=== PATIENT | female | born 1985 | race Caucasian/White ===

== ENCOUNTER 2022-12-02 09:13 | Outpatient (OUT) | payer MEDICARE, SELFPAY ==
[2022-12-02 09:50] LABS: Basophils Percent Auto 0.5 % (0.2-2.0); Eosinophils Absolute Auto 0.1 10^3/uL (0.0-0.7); Eosinophils Percent Auto 1.1 % (0.9-7.0); Hematocrit 30.8 % (36.0-48.0); Immature Granulocytes Abs Auto 0.13 10^3/uL (0.00-0.03); Immature Granulocytes Pct Auto 2.3 % (0.0-0.5); Lymphocytes Absolute Auto 1.7 10^3/uL (1.2-3.8); Lymphocytes Percent Auto 29.9 % (20.5-60.0); Mean Corpuscular HGB Conc 32.5 g/dL (29.9-35.2); Mean Corpuscular Hemoglobin 26.3 pg (26.7-34.0); Mean Corpuscular Volume 81.1 fL (81.0-99.0); Mean Platelet Volume 8.6 fL (9.5-13.5); Monocytes Absolute Auto 0.4 10^3/uL (0.3-0.8); Monocytes Percent Auto 6.2 % (1.7-12.0); Neutrophils Absolute Auto 3.4 10^3/uL (1.4-6.5); Platelet Count 235 10^3/uL (150-450); Red Cell Distribution Width 16.2 % (11.0-15.0); White Blood Count 5.6 10^3/uL (4.0-11.0)
[2022-12-02 10:39] LABS: Estimated Average Glucose 180 mg/dL; Glycohemoglobin A1C 7.9 % (4.5-6.2)
[2022-12-02 12:18] LABS: Alanine Aminotransferase 38 U/L (14-59); Albumin Globulin Ratio 0.8; Albumin Level 3.3 g/dL (3.4-5.0); Alkaline Phosphatase 107 U/L (46-116); Anion Gap 12.1; Aspartate Amino Transferase 22 U/L (15-37); BUN Creatinine Ratio 11.6; Bilirubin Total 0.5 mg/dL (0.2-1.0); Chloride 102 mmol/L (98-107); Chol HDL Ratio 9.4; Cholesterol 169 mg/dL (<=200); Estimated GFR (African America >60 (>=60); Estimated GFR (Non-African Ame >60 (>=60); Globulin 4.3 g/dL; Glucose 247 mg/dL (74-106); HDL Cholesterol 18 mg/dL (40-60); Potassium 3.1 mmol/L (3.5-5.1); Sodium 137 mmol/L (136-145); Total Protein 7.6 g/dL (6.4-8.2); Triglycerides 348 mg/dL (<=150); VLDL CHOLESTEROL 69.6 mg/dL
== END 2022-12-02 09:14 | disposition home or self-care (01) ==
PROVIDERS: PCP Nurse Practitioner; Visit Provider Nurse Practitioner
DX: D50.9 Iron deficiency anemia, unspecified (principal); E11.9 Type 2 diabetes mellitus without complications
CPT/HCPCS: 36415; 80053; 80061; 82728; 82746; 83036; 83540; 85025

== ENCOUNTER 2023-03-31 15:28 | Outpatient (REF) | payer MEDICARE, SELFPAY ==
[2023-03-31 16:02] LABS: SARS-CoV-2 Ag NEGATIVE (NEGATIVE)
--- OUTSIDE RECORDS SUMMARY | 2023-04-01 09:59 | XMS_ITS | CCD ---
Author Name Unknown Address [address] [place] [address] Organization [facility] Care Team Providers Care Dbas Name Role Phone EM .REJI Attending Unavailable REJI MORALES Consulting Unavailable REJI MORALES Admitting Unavailable BISHOP WALLACE Primary Care Unavailable Allergies Allergy Classification Reported Allergen(s) Allergy Type Date of Onset Reaction(s) Facility (1 source) [facility] Allergy 07-15-2022 [facility] Repository Problems Problem Classification Problem Date Documented Da te Episodic/Chronic Abdominal pain (3 sources) Upper abdominal pain, unspecified; Translations: [UPPER ABDOMINAL PAIN, UNSPECIFIED] Onset: 07-15-2022 Episodic Deficiency and other anemia (1 source) Iron deficiency anemia, unspecified; Translations: [IRON DEFICIENCY ANEMIA UNSPECIFIED] Onset: 07-17-2022 Episodic Gastritis and duodenitis (1 source) Gastritis, unspecified, without bleeding; Translations: [GASTRITIS UNS WITHOUT BLEEDING] Onset: 07-17-2022 Episodic Other gastrointestinal disorders (1 source) Other fecal abnormalities; Translations: [OTHER FECAL ABNORMALITIES] Onset: 07-17-2022 Episodic Results Test Name Value Interpretation Reference Range Facility CBC AUTO DIFFon 07-15-2022 BASO # 0.0 103/ul Normal 0.0-0.1 [facility] Comment on above: Performed By: #### C BC #### [facility] [address] [address] [address] Soy Singh Basophils/100 WBC (Bld) 0.5 % Normal 0.2-2.0 [facility] Comment on above: Performed By: #### C BC #### [facility] [address] [place], [place] [address] Dr. Soy Singh EO # 0.1 103/ul Normal 0.0-0.7 [facility] Comment on above: Performed By: #### C BC #### [facility] [address] [place] [address] Dr. Soy Singh Eosinophils/100 WBC (Bld) 1.7 % Normal 0.9-7.0 [facility] Comment on above: Performed By: #### C BC #### [facility] [address] [place] [address] Dr. Soy Singh Erythrocyte distribution width (RBC) [Ratio] 19.4 % Critically high 11.0-15.0 [facility] Comment on above: Performed By: #### C BC #### [facility] [address] [place] [address] Dr. Soy Singh Hematocrit (Bld) [Volume fraction] 29.4 % Critically low 36.0-48.0 [facility] Comment on above: Performed By: #### C BC #### [facility] [address] [place] [address] Dr. Soy Singh Hemoglobin (Bld) [Mass/Vol] 8.6 g/dL Critically low 12.0-16.0 [facility] Comment on above: Performed By: #### C BC #### [facility] [address] [place] [address] Dr. Soy Singh IG # 0.02 10e3/ul Normal 0.00-0.03 [facility] Comment on above: Performed By: #### C BC #### [facility] [address] [place] [address] Dr. Soy Singh IG % 0.3 % Normal 0.0-0.5 [facility] Comment on above: Performed By: #### C BC #### [facility] [address] [place] [address] Dr. Soy Singh LYMPH # 1.6 103/ul Normal 1.2-3.8 [facility] Comment on above: Performed By: #### C BC #### [facility] [address] [place] [address] Dr. Soy Singh Lymphocytes/100 WBC (Bld) 23.8 % Normal 20.5-60.0 [facility] Comment on above: Performed By: #### C BC #### [facility] [address] [place] [address] Dr. Soy Singh MANUAL DIFF REQ NO Normal [facility] Comment on above: Performed By: #### C BC #### [facility] [address] [place] [address] Dr. Soy Singh MCH (RBC) [Entitic mass] 20.5 pg Critically low 26.7-34.0 [facility] Comment on above: Performed By: #### C BC #### [facility] [address] [place] [address] Dr. Soy Singh MCHC (RBC) [Mass/Vol] 29.3 g/dL Critically low 29.9-35.2 [facility] Comment on above: Performed By: #### C BC #### [facility] [address] [place] [address] Dr. Soy Singh MCV (RBC) [Entitic vol] 70.0 fL Critically low 81.0-99.0 [facility] Comment on above: Performed By: #### C BC #### [facility] [address] [place] [address] Dr. Soy Singh MONO # 0.3 103/ul Normal 0.3-0.8 [facility] Comment on above: Performed By: #### C BC #### [facility] [address] [place] [address] Dr. Soy Singh Monocytes/100 WBC (Bld) 4.3 % Normal 1.7-12.0 [facility] Comment on above: Performed By: #### C BC #### [facility] [address] [place] [address] Dr. Soy Singh NEUT # 4.5 103/ul Normal 1.4-6.5 [facility] Comment on above: Performed By: #### C BC #### [facility] [address] [place] [address] Dr. Soy Singh Neutrophils/100 WBC (Bld) 69.4 % Normal 43.0-75.0 [facility] Comment on above: Performed By: #### C BC #### [facility] [address] [address] [address] Soy Singh Platelet mean volume (Bld) [Entitic vol] 9.0 fL Critically low 9.5-13.5 [facility] Comment on above: Performed By: #### C BC #### [facility] [address] [place] [address] Dr. Soy Singh PLT 249 103/ul Normal 150-450 [facility] Comment on above: Performed By: #### C BC #### [facility] [address] [place] [address] Dr. Soy Singh RBC 4.20 106/ul Normal 4.20-5.40 [facility] Comment on above: Performed By: #### C BC #### [facility] [address] [place] [address] Dr. Soy Singh WBC 6.5 103/ul Normal 4.0-11.0 [facility] Comment on above: Performed By: #### C BC #### [facility] [address] [place] [address] Dr. Soy Singh IRON AND TIBCon 07-15-2022 % SATURATION 5.6 % Normal [facility] Comment on above: Performed By: #### F ETIBC #### [facility] [address] [place] [address] Dr. Soy Singh Iron [Mass/Vol] 23.0 ug/dL Critically low 50.0-170.0 [facility] Comment on above: Performed By: #### F ETIBC #### [facility] [address] [place] [address] Dr. Soy Singh TIBC DIRECT 410.0 ug/dL Normal 250.0-450.0 [facility] Comment on above: Performed By: #### F ETIBC #### [facility] [address] [place] [address] Dr. Soy Singh OCC BLD IMMUNOASSAYon 2022 OCCULT BLOOD Negative Normal NEGATIVE [facility] Comment on above: Performed By: #### O DARRELL #### [facility] [address] [address] [address] Soy Singh PREG HCG QUALon 07-15-2022 , QUAL Negative Normal NEGATIVE [facility] Comment on above: Performed By: #### P REG #### [facility] [address] [address] [address] Soy Singh PROF 14(COMP METB)on 023 Albumin [Mass/Vol] 3.7 g/dL Normal 3.4-5.0 [facility] Comment on above: Performed By: #### C MP #### [facility] [address] [place] [address] Dr. Soy Singh Albumin/Globulin [Mass ratio] 0.9 {ratio} Normal [facility] Comment on above: Performed By: #### C MP #### [facility] [address] [place] [address] Dr. Soy Singh ALP [Catalytic activity/Vol] 117 U/L Critically high 46-116 [facility] Comment on above: Performed By: #### C MP #### [facility] [address] [place] [address] Dr. Soy Singh ALT [Catalytic activity/Vol] 32 U/L Normal 14-59 [facility] Comment on above: Performed By: #### C MP #### [facility] [address] [place] [address] Dr. Soy Singh Anion gap [Moles/Vol] 12.4 mmol/L Normal [facility] Comment on above: Performed By: #### C MP #### [facility] [address] [place] [address] Dr. Soy Singh AST [Catalytic activity/Vol] 22 U/L Normal 15-37 [facility] Comment on above: Performed By: #### C MP #### [facility] [address] [place] [address] Dr. Soy Singh Bilirubin [Mass/Vol] 0.3 mg/dL Normal 0.2-1.0 [facility] Comment on above: Performed By: #### C MP #### [facility] [address] [address] [address] Soy Singh Calcium [Mass/Vol] 8.7 mg/dL Normal 8.5-10.1 [facility] Comment on above: Performed By: #### C MP #### [facility] [address] [address] [address] Soy Singh Chloride [Moles/Vol] 102 mmol/L Normal 98-107 [facility] Comment on above: Performed By: #### C MP #### [facility] [address] [address] [address] Soy Singh CO2 [Moles/Vol] 24.5 mmol/L Normal 21.0-32.0 [facility] Comment on above: Performed By: #### C MP #### [facility] [address] [place] [address] Dr. Soy Singh Creatinine [Mass/Vol] 0.88 mg/dL Normal 0.55-1.02 [facility] Comment on above: Performed By: #### C MP #### [facility] [address] [place] [address] Dr. Soy Singh EGFR-AF ARMENIAN >60 Normal >=60 [facility] Comment on above: Performed By: #### C MP #### [facility] [address] [place] [address] Dr. Soy Singh EGFR-NON AF ARMENIAN >60 Normal >=60 [facility] Comment on above: Performed By: #### C MP #### [facility] [address] [address] [address] Soy Singh Globulin (S) [Mass/Vol] 4.0 g/dL Normal [facility] Comment on above: Performed By: #### C MP #### [facility] [address] [place] [address] Dr. Soy Singh Glucose [Mass/Vol] 137 mg/dL Critically high 74-106 [facility] Comment on above: Performed By: #### C MP #### [facility] [address] [address] [address] Soy Singh Potassium [Moles/Vol] 3.9 mmol/L Normal 3.5-5.1 [facility] Comment on above: Performed By: #### C MP #### [facility] [address] [address] [address] Soy Singh Protein [Mass/Vol] 7.7 g/dL Normal 6.4-8.2 [facility] Comment on above: Performed By: #### C MP #### [facility] [address] [address] [address] Soy Singh Sodium [Moles/Vol] 135 mmol/L Critically low 136-145 [facility] Comment on above: Performed By: #### C MP #### [facility] [address] [address] [address] Soy Singh Urea nitrogen [Mass/Vol] 7.0 mg/dL Normal 7.0-18.0 [facility] Comment on above: Performed By: #### C MP #### [facility] [address] [address] [address] Soy Singh Urea nitrogen/Creatinine [Mass ratio] 8.0 mg/mg Normal [facility] Comment on above: Performed By: #### C MP #### [facility] [address] [address] [address] Soy Singh TYPE AND SCREENon 07-15-2022 TYPE AND SCREEN Negative Normal [facility] Comment on above: Performed By: #### T NS #### [facility] [address] [address] [address] Soy Singh Ferritinon 03-07-2021 Ferritin [Mass/Vol] 272.4 ng/mL High 7.3-270.7 [facility] Comment on above: Order Comment: Speci men Type: Unknown Relevant Clinical Information: See Reason(s) for Study Ordering Facility: [facility] Address: [address] [place] [address] Result Comment: Marcela de souza note new reference range Performed By: #### C BC #### [facility] CLIA [id number] [address] [place] [address] Iron TIBC Saturationon 03-07 Iron [Mass/Vol] 82 ug/dL Normal 50-170 [facility] Comment on above: Order Comment: Speci men Type: Unknown Relevant Clinical Information: See Reason(s) for Study Ordering Facility: [facility] Address: [address] [place] [address] Performed By: #### C BC #### [facility] CLIA [id number] [address] [place] [address] Iron Saturation 28 % Normal 15-50 [facility] Comment on above: Order Comment: Speci men Type: Unknown Relevant Clinical Information: See Reason(s) for Study Ordering Facility: [facility] Address: [address] [place] [address] Performed By: #### C BC #### [facility] CLIA [id number] [address] [place] [address] TIBC 298 ug/dL Normal 250-425 [facility] Comment on above: Order Comment: Speci men Type: Unknown Relevant Clinical Information: See Reason(s) for Study Ordering Facility: [facility] Address: [address] [place] [address] Result Comment: Plea se note new reference range Performed By: #### C BC #### [facility] CLIA [id number] [address] [place] [address] CBC w/ Auto Diffon 1 Basophils Absolute Auto 0.04 10*3/uL Normal 0.00-0.07 [facility] Comment on above: Order Comment: Speci men Type: Unknown Relevant Clinical Information: See Reason(s) for Study Ordering Facility: [facility] Address: [address] [place] [address] Result Comment: Plea se note new reference range Performed By: #### C BC #### [facility] CLIA [id number] [address] [place] [address] Basophils/100 WBC (Bld) 0.5 % Normal 0.0-1.0 [facility] Comment on above: Order Comment: Speci men Type: Unknown Relevant Clinical Information: See Reason(s) for Study Ordering Facility: [facility] Address: [address] [place] [address] Result Comment: Plea se note new reference range Performed By: #### C BC #### [facility] CLIA [id number] [address] [place] [address] Eosinophils (Bld) [#/Vol] 0.12 10*3/uL Normal 0.00-0.35 [facility] Comment on above: Order Comment: Speci men Type: Unknown Relevant Clinical Information: See Reason(s) for Study Ordering Facility: [facility] Address: [address] [place] [address] Result Comment: Plea se note new reference range Performed By: #### C BC #### [facility] CLIA [id number] [address] [place] [address] Eosinophils/100 WBC (Bld) 1.6 % Normal 0.0-6.0 [facility] Comment on above: Order Comment: Speci men Type: Unknown Relevant Clinical Information: See Reason(s) for Study Ordering Facility: [facility] Address: [address] [place] [address] Result Comment: Plea se note new reference range Performed By: #### C BC #### [facility] CLIA [id number] [address] [place] [address] Erythrocyte distribution width (RBC) [Ratio] 16.7 % High 11.0-14.6 [facility] Comment on above: Order Comment: Speci men Type: Unknown Relevant Clinical Information: See Reason(s) for Study Ordering Facility: [facility] Address: [address] [place] [address] Result Comment: Plea se note new reference range Performed By: #### C BC #### [facility] CLIA [id number] [address] [place] [address] Hematocrit (Bld) [Volume fraction] 34.4 % Normal 34.1-45.9 [facility] Comment on above: Order Comment: Speci men Type: Unknown Relevant Clinical Information: See Reason(s) for Study Ordering Facility: [facility] Address: [address] [place] [address] Result Comment: Plea se note new reference range Performed By: #### C BC #### [facility] CLIA [id number] [address] [place] [address] Hemoglobin (Bld) [Mass/Vol] 11.3 g/dL Normal 11.2-15.2 [facility] Comment on above: Order Comment: Speci men Type: Unknown Relevant Clinical Information: See Reason(s) for Study Ordering Facility: [facility] Address: [address] [place] [address] Result Comment: Plea se note new reference range Performed By: #### C BC #### [facility] CLIA [id number] [address] [place] [address] Lymphocytes (Bld) [#/Vol] 1.71 10*3/uL Normal 0.68-2.99 [facility] Comment on above: Order Comment: Speci men Type: Unknown Relevant Clinical Information: See Reason(s) for Study Ordering Facility: [facility] Address: [address] [place] [address] Result Comment: Plea se note new reference range Performed By: #### C BC #### [facility] CLIA [id number] [address] [place] [address] Lymphocytes/100 WBC (Bld) 23.3 % Normal 12.0-44.0 [facility] Comment on above: Order Comment: Speci men Type: Unknown Relevant Clinical Information: See Reason(s) for Study Ordering Facility: [facility] Address: [address] [place] [address] Result Comment: Plea se note new reference range Performed By: #### C BC #### [facility] CLIA [id number] [address] [place] [address] MCH (RBC) [Entitic mass] 28.3 pg Normal 27.8-32.8 [facility] Comment on above: Order Comment: Speci men Type: Unknown Relevant Clinical Information: See Reason(s) for Study Ordering Facility: [facility] Address: [address] [place] [address] Result Comment: Plea se note new reference range Performed By: #### C BC #### [facility] CLIA [id number] [address] [place] [address] MCHC (RBC) [Mass/Vol] 32.8 g/dL Normal 31.3-35.3 [facility] Comment on above: Order Comment: Speci men Type: Unknown Relevant Clinical Information: See Reason(s) for Study Ordering Facility: [facility] Address: [address] [place] [address] Result Comment: Plea se note new reference range Performed By: #### C BC #### [facility] CLIA [id number] [address] [place] [address] MCV (RBC) [Entitic vol] 86.2 fL Normal 84-100 [facility] Comment on above: Order Comment: Speci men Type: Unknown Relevant Clinical Information: See Reason(s) for Study Ordering Facility: [facility] Address: [address] [place] [address] Result Comment: Plea se note new reference range Performed By: #### C BC #### [facility] CLIA [id number] [address] [place] [address] Monocytes (Bld) [#/Vol] 0.35 10*3/uL Normal 0.24-0.87 [facility] Comment on above: Order Comment: Speci men Type: Unknown Relevant Clinical Information: See Reason(s) for Study Ordering Facility: [facility] Address: [address] [place] [address] Result Comment: Plea se note new reference range Performed By: #### C BC #### [facility] CLIA [id number] [address] [place] [address] Monocytes/100 WBC (Bld) 4.8 % Normal 4.0-13.0 [facility] Comment on above: Order Comment: Speci men Type: Unknown Relevant Clinical Information: See Reason(s) for Study Ordering Facility: [facility] Address: [address] [place] [address] Result Comment: Plea se note new reference range Performed By: #### C BC #### [facility] CLIA [id number] [address] [place] [address] Neutrophils Absolute Auto 5.11 10*3/uL Normal 1.48-6.58 [facility] Comment on above: Order Comment: Speci men Type: Unknown Relevant Clinical Information: See Reason(s) for Study Ordering Facility: [facility] Address: [address] [place] [address] Result Comment: Plea se note new reference range Performed By: #### C BC #### [facility] CLIA [id number] [address] [place] [address] Neutrophils/100 WBC (Bld) 69.5 % Normal 42.0-77.0 [facility] Comment on above: Order Comment: Speci men Type: Unknown Relevant Clinical Information: See Reason(s) for Study Ordering Facility: [facility] Address: [address] [place] [address] Result Comment: Plea se note new reference range Performed By: #### C BC #### [facility] CLIA [id number] [address] [place] [address] Platelet mean volume (Bld) [Entitic vol] 8.8 fL Normal 8.6-12.3 [facility] Comment on above: Order Comment: Speci men Type: Unknown Relevant Clinical Information: See Reason(s) for Study Ordering Facility: [facility] Address: [address] [place] [address] Result Comment: Plea se note new reference range Performed By: #### C BC #### [facility] CLIA [id number] [address] [place] [address] Platelets (Bld) [#/Vol] 255 10*3/uL Normal 134-374 [facility] Comment on above: Order Comment: Speci men Type: Unknown Relevant Clinical Information: See Reason(s) for Study Ordering Facility: [facility] Address: [address] [place] [address] Result Comment: Plea se note new reference range Performed By: #### C BC #### [facility] CLIA [id number] [address] [place] [address] RBC (Bld) [#/Vol] 3.99 10*6/uL Normal 3.65-5.06 [facility] Comment on above: Order Comment: Speci men Type: Unknown Relevant Clinical Information: See Reason(s) for Study Ordering Facility: [facility] Address: [address] [place] [address] Result Comment: Plea se note new reference range Performed By: #### C BC #### [facility] CLIA [id number] [address] [place] [address] WBC (Bld) [#/Vol] 7.4 10*3/uL Normal 3.5-9.7 [facility] Comment on above: Order Comment: Speci men Type: Unknown Relevant Clinical Information: See Reason(s) for Study Ordering Facility: [facility] Address: [address] [place] [address] Result Comment: Plea se note new reference range Performed By: #### C BC #### [facility] CLIA [id number] [address] [place] [address] Hemoglobin and Hematocriton 01-28-2021 Hematocrit (Bld) [Volume fraction] 34.4 % Normal 34.1-45.9 [facility] Comment on above: Order Comment: Speci men Type: Unknown Relevant Clinical Information: See Reason(s) for Study Ordering Facility: [facility] Address: [address] [place] [address] Result Comment: Plea se note new reference range Performed By: #### H H #### [facility] CLIA [id number] [address] [place] [address] Hemoglobin (Bld) [Mass/Vol] 11.1 g/dL Low 11.2-15.2 [facility] Comment on above: Order Comment: Speci men Type: Unknown Relevant Clinical Information: See Reason(s) for Study Ordering Facility: [facility] Address: [address] [place] [address] Result Comment: Plea se note new reference range Performed By: #### H H #### [facility] CLIA [id number] [address] [place] [address] Urine Cultureon 01-23-2021 Bacteria identified Cx Nom (U) ------- Urine Culture: 1,000-10,000 CFU/ml of a bacterium has been cultured. This most likely represents specimen contamination. Please call the Microbiology lab (ext [phone]) within 72 hours if the patient has urinary symptoms and further workup is needed. Normal [facility] Comment on above: Order Comment: Speci men Type: Urine clean catch (cup) Relevant Clinical Information: f/u Ordering Facility: [facility] Address: [address] [place] [address] Performed By: #### C UU #### [facility] CLIA [id number] [address] [place], [place] [id number] Miguel Ren DO,FCAP Glucometer POCon 01-22-2021 Glucose [Mass/Vol] 319 mg/dL High 70-110 Juane jean-paul [facility] Comment on above: Order Comment: Speci men Type: Unknown Relevant Clinical Information: See Reason(s) for Study Ordering Facility: [facility] Address: [address] [place] [address] Performed By: #### C BC #### [facility] CLIA [id number] [address] [place], [place] [id number] Office Visit Reporton 2020 Office Visit Report [facility] [address] [facility] 2nd [place] [address] Office Visit Report Signed with Addenda Patient: Jae Martin MR#: [id number] : 1985 Acct: [id number] Age/Sex: 35 / F Loc: [facility]. Date of Service: 01/22/[address]: Katina Bradley DO cc: ADDENDUM Office Procedure Documentation entered by Mari Ruffin LPN 01/22/21 13:30: Office Meds ketorolac Performing Provider: Katina Bradley DO Administered by: Mari Ruffin LPN on 01/22/21 13:29 Dose Route Admin Location Lot Number Expiration Date NDC Manufactu rer 60 mg IM Right Deltoid [id number] 07/11/21 3803-7749-02 [employer]OSP[employer]PFIZER Results Blood Glucose POC Blood Glucose POC 319 mg/dL Last Edit by Mari Ruffin LPN on 01/22/21 11:02 Addendum Dictated By: Mari Ruffin Addendum Signed By: Mari Ruffin LPN 01/22/211329 Addendum Cosigned By: DD/ TD/TT: 01/22/21 ADDENDUM Office Procedure Documentation entered by Mari Ruffin LPN 01/22/21 11:01: POC Procedure Completed Procedure Procedure Completed?: Yes Details: Laboratory Tests 01/22/21 01/22/21 10:54 10:58 Glucometer 319 H Urine Color Yellow Urine Appearance Cloudy A Urine pH 5.5 Ur Specific [place] 1.020 POC Urine Protein Conf Negative POC Urine Glucose >=1000 A Urine Ketones Trace A Urine Blood Negative POC Urine Nitrate Negative POC Ur Bilirubin Conf Negative Urine Urobilinogen 0.2 Ur Leukocyte Esterase Negative POC Procedure Completed Procedure Procedure Completed?: Yes Details: Laboratory Tests 01/22/21 01/22/21 10:54 10:58 Glucometer 319 H Urine Color Yellow Urine Appearance Cloudy A Urine pH 5.5 Ur Specific [place] 1.020 POC Urine Protein Conf Negative POC Urine Glucose >=1000 A Urine Ketones Trace A Urine Blood Negative POC Urine Nitrate Negative POC Ur Bilirubin Conf Negative Urine Urobilinogen 0.2 Ur Leukocyte Esterase Negative Addendum Dictated By: Mari Ruffin Addendum Signed By: Mari Ruffin LPN 01/22/211100 Addendum Cosigned By: DD/ TD/TT: 01/22/21 Intake Vital Signs ([facility]) 01/22/21 10:23 Height 5 ft 1.02 in Weight 202 lb 6.15 oz BMI 38.2 BP 130/90 Blood Pressure Location Rt brachial Position Sitting Respiration 16 Pulse 94 H Pulse Source NIBP Pulse Oximetry (%) 94 Oxygen Delivery Method Room Air 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 Is patient in acute pain: Yes (01/19 headache) Allergies aspirin Allergy (Verified 01/22/21 10:32) thins blood promethazine [From Phenergan] Allergy (Verified 01/22/21 10:32) Medications - Last Reconciled 01/22/21 by Mari Ruffin LPN cyclobenzaprine 5 mg ORAL Q8H PRN meloxicam 15 mg ORAL DAILY metformin ER 500 mg ORAL DAILY omeprazole 40 mg ORAL DAILYPPI Smoking risk assessment performed?: Yes Smoking Status: Never smoker Annual Influenza Vaccine: No Flu Vaccine not done: patient reason Have you had a cervical cancer screening(PAP smear) in the past 3 years?: Yes Is last menstrual period known: Yes Last menstrual period: 01/08/21 Patient : No Post menopausal: No History History 3 Elective abortions Para 3 Spontaneous abortions Hx # Term Pregnancies 3 Ectopic pregnancies Hx # Pregnancies Multiple births Specific Travel Risk - COVID-19 Travel from high risk country; contact w/ high risk person(s): No COVID-19 Symptoms: No PHQ-2/9 . Over the last 2 weeks, how often have you been bothered by any of the following problems? 1. Little interest or pleasure in doing things: several days 2. Feeling down, depressed, or hopeless: several days PHQ-2: Total score: 2 9. Thoughts that you would be better off or of hurting yourself in some way: not at all 0-4 None-Minimal, 5-9 Mild, 10-14 Moderate, 15-19 Moderately Severe, 20-27 Severe Source: Developed by Drs. Tommy Castellano, Juany Fagan, Pato Wood and colleagues, with an educational scotty from [employer]. .. Do you need a note to return to daycare/school/sports/w ork: No Nurse's Note Nurse's Note: Pt reports recently receiving iron infusion. C/O 01/19 headache. Pt reports ED visit last week for glucose of 500. Would like test strips. [facility] History Diabetes GERD (gastroesophageal reflux disease) Musculoskeletal pain Otitis externa Otitis media Von Willebrand disease Surgical History History of Family History Mother Seizures Father Diabetes mellitus Other Heart disease Social Histor (more content not included)... Normal [facility] Urinalysis Routine Dipstick POCon 01-22-2021 Appearance (U) Cloudy Abnormal Clear [facility] Comment on above: Order Comment: Speci men Type: Unknown Relevant Clinical Information: See Reason(s) for Study Ordering Facility: [facility] Address: [address] [place] [address] Performed By: #### C BC #### [facility] CLIA [id number] [address] [place] [address] Ur Specific [place] 1.020 Normal 1.000-1.030 [facility] Comment on above: Order Comment: Speci men Type: Unknown Relevant Clinical Information: See Reason(s) for Study Ordering Facility: [facility] Address: [address] [place] [address] Performed By: #### C BC #### [facility] CLIA [id number] [address] [place] [address] Urine Bilirubin POC Negative Normal Negative [facility] Comment on above: Order Comment: Speci men Type: Unknown Relevant Clinical Information: See Reason(s) for Study Ordering Facility: [facility] Address: [address] [place] [address] Performed By: #### C BC #### [facility] CLIA [id number] [address] [place] [address] Urine Blood POC Negative Normal Negative [facility] Comment on above: Order Comment: Speci men Type: Unknown Relevant Clinical Information: See Reason(s) for Study Ordering Facility: [facility] Address: [address] [place] [address] Performed By: #### C BC #### [facility] CLIA [id number] [address] [place], [place] [address] Urine Color POC Yellow Normal Yellow [facility] Comment on above: Order Comment: Speci men Type: Unknown Relevant Clinical Information: See Reason(s) for Study Ordering Facility: [facility] Address: [address] [place] [address] Performed By: #### C BC #### [facility] CLIA [id number] [address] [place] [address] Urine Glucose POC >=1000 Abnormal Negative [facility] Comment on above: Order Comment: Speci men Type: Unknown Relevant Clinical Information: See Reason(s) for Study Ordering Facility: [facility] Address: [address] [place] [address] Performed By: #### C BC #### [facility] CLIA [id number] [address] [place] [address] Urine Ketones POC Trace Abnormal Negative [facility] Comment on above: Order Comment: Speci men Type: Unknown Relevant Clinical Information: See Reason(s) for Study Ordering Facility: [facility] Address: [address] [place] [address] Performed By: #### C BC #### [facility] CLIA [id number] [address] [place] [address] Urine Leukocyte Esterase POC Negative Normal Negative [facility] Comment on above: Order Comment: Speci men Type: Unknown Relevant Clinical Information: See Reason(s) for Study Ordering Facility: [facility] Address: [address] [place] [address] Performed By: #### C BC #### [facility] CLIA [id number] [address] [place] [address] Urine Nitrites POC Negative Normal Negative [facility] Comment on above: Order Comment: Speci men Type: Unknown Relevant Clinical Information: See Reason(s) for Study Ordering Facility: [facility] Address: [address] [place] [address] Performed By: #### C BC #### [facility] CLIA [id number] [address] [place] [address] Urine pH POC 5.5 Normal <=7.5 [facility] Comment on above: Order Comment: Speci men Type: Unknown Relevant Clinical Information: See Reason(s) for Study Ordering Facility: [facility] Address: [address] [place] [address] Performed By: #### C BC #### [facility] CLIA [id number] [address] [place] [address] Urine Protein POC Negative Normal Negative [facility] Comment on above: Order Comment: Speci men Type: Unknown Relevant Clinical Information: See Reason(s) for Study Ordering Facility: [facility] Address: [address] [place] [address] Performed By: #### C BC #### [facility] CLIA [id number] [address] [place] [address] Urine Urobilinogen POC 0.2 E.U./dL Normal 0-1.9 [facility] Comment on above: Order Comment: Speci men Type: Unknown Relevant Clinical Information: See Reason(s) for Study Ordering Facility: [facility] Address: [address] [place] [address] Performed By: #### C BC #### [facility] CLIA [id number] [address] [place] [address] Urine Cultureon 01-17-2021 Bacteria identified Cx Nom (U) ORGANISM ID: [id number] Escherichia coli - Isolated [place] Count >100,000 CFU/ml Gram Negative Sensitivity 66 ------- ORGANISM ID: [id number] ------- ANTIBIOTIC INTERPRETATION OPAL STATUS Relevant Clinical Information: Abnormal labs/ headache Ampicillin S F Ampicillin/Sulbactam S F Cefazolin S F Cefepime S F Extended Spectrum Beta Lactama - F Cefoxitin S F Ceftazidime S F Ceftriaxone S F Ciprofloxacin S F Ertapenem S F Gentamicin S F Imipenem S F Levofloxacin S F Nitrofurantoin S F Tobramycin S F Trimethoprim/Sulfametho xazole S F Piperacillin/Tazobactam S F Normal [facility] Comment on above: Order Comment: Speci men Type: Unknown Relevant Clinical Information: See Reason(s) for Study Ordering Facility: [facility] Address: [address] [place] [address] Performed By: #### H H #### [facility] CLIA [id number] [address] [place] [address] SARS-COV-2, PCRon 01-15-2021 SARS-CoV-2 (COVID-19) RNA NENA+probe Ql (Unsp spec) Not detected Normal Not Detect [facility] Comment on above: Order Comment: Speci men Type: Unknown Relevant Clinical Information: See Reason(s) for Study Ordering Facility: [facility] Address: [address] [place] [address] Result Comment: Meth od: Real-time Reverse Transcriptase polymerase chain reaction(RT-PCR) The sensitivity of the assay is dependent on the quality of the specimen collected for testing. The test is specific for severe acute respiratory syndrome coronavirus 2 (SARS-CoV-2), and positive test results do not exclude the possibility of concurrent infection with other respiratory viruses. Negative results do not preclude infection with SARS-CoV-2 and should not be used as the sole basis for decisions on treatment or other patient care management. This test has been authorized by FDA under an Emergency Use Authorization (EUA). This test is only authorized for the duration of time the declaration that circumstances exist justifying the authorization of the emergency use of in vitro diagnostic tests for detection of SARS-CoV-2 virus and/or diagnosis of COVID-19 infection under section 564(b)(1) of the Act, 21 U.S.C. 360bbb-3(b)(1), unless the authorization is terminated or revoked sooner. Performed By: #### C BC #### [facility] CLIA [id number] [address] [place] [address] Basic Metabolic Panelon 10-0 -2020 Calcium [Mass/Vol] 9.3 mg/dL Normal 8.3-10.6 [facility] Comment on above: Order Comment: Speci men Type: Unknown Relevant Clinical Information: See Reason(s) for Study Ordering Facility: [facility] Address: [address] [place] [address] Result Comment: Plea se note new reference range Performed By: #### H H #### [facility] CLIA [id number] [address] [place] [address] Chloride [Moles/Vol] 102 mmol/L Normal 98-107 [facility] Comment on above: Order Comment: Speci men Type: Unknown Relevant Clinical Information: See Reason(s) for Study Ordering Facility: [facility] Address: [address] [place] [address] Result Comment: Plea se note new reference range Performed By: #### H H #### [facility] CLIA [id number] [address] [place] [address] CO2 [Moles/Vol] 27 mmol/L Normal 20-31 [facility] Comment on above: Order Comment: Speci men Type: Unknown Relevant Clinical Information: See Reason(s) for Study Ordering Facility: [facility] Address: [address] [place] [address] Result Comment: Plea se note new reference range Performed By: #### H H #### [facility] CLIA [id number] [address] [place] [address] Creatinine [Mass/Vol] 0.788 mg/dL Normal 0.55-1.02 [facility] Comment on above: Order Comment: Speci men Type: Unknown Relevant Clinical Information: See Reason(s) for Study Ordering Facility: [facility] Address: [address] [place] [address] Performed By: #### H H #### [facility] CLIA [id number] [address] [place] [address] GFR/1.73 sq M.predicted MDRD (S/P/Bld) [Vol rate/Area] 87 mL/min/{1.73_m2} Normal [facility] Comment on above: Order Comment: Speci men Type: Unknown Relevant Clinical Information: See Reason(s) for Study Ordering Facility: [facility] Address: [address] [place] [address] Result Comment: K/DO QI Guideline: Stage 1 >/=90 mL/min/1.73m2 - Not Consistent with CKD Stage 2 60-89 mL/min/1.73m2 - Consistent with Mild CKD Stage 3 30-59 mL/min/1.73m2 - Consistent with Moderate CKD Stage 4 15-29 mL/min/1.73m2 - Consistent with Severe CKD Stage 5 <15 mL/min/1.73m2 - Consistent with Kidney Failure Estimated Glomerular Filtration Rate (eGFR) is a calculated value utilizing the MDRD equation and provides an estimate of renal function. The equation assumes a steady state and should not be used for patients that meet any of the following criteria: - Are younger than 18 or older than 70 - Have rapidly fluctuating kidney function - Are - Have serious comorbid conditions - Have extremes of body size - Have extremes of muscle mass - Have extremes of nutritional status - Are non- or non- - Have normal kidney function Performed By: #### H H #### [facility] CLIA [id number] [address] [place] [address] Glucose [Mass/Vol] 284 mg/dL High 74-106 [facility] Comment on above: Order Comment: Speci men Type: Unknown Relevant Clinical Information: See Reason(s) for Study Ordering Facility: [facility] Address: [address] [place] [address] Performed By: #### H H #### [facility] CLIA [id number] [address] [place] [address] Potassium [Moles/Vol] 3.8 mmol/L Normal 3.5-5.1 [facility] Comment on above: Order Comment: Speci men Type: Unknown Relevant Clinical Information: See Reason(s) for Study Ordering Facility: [facility] Address: [address] [place] [address] Performed By: #### H H #### [facility] CLIA [id number] [address] [place] [address] Sodium [Moles/Vol] 135 mmol/L Low 136-145 [facility] Comment on above: Order Comment: Speci men Type: Unknown Relevant Clinical Information: See Reason(s) for Study Ordering Facility: [facility] Address: [address] [place] [address] Performed By: #### H H #### [facility] CLIA [id number] [address] [place] [address] Urea nitrogen [Mass/Vol] 6 mg/dL Low 9-23 [facility] Comment on above: Order Comment: Speci men Type: Unknown Relevant Clinical Information: See Reason(s) for Study Ordering Facility: [facility] Address: [address] [place] [address] Result Comment: Plea se note new reference range Performed By: #### H H #### [facility] CLIA [id number] [address] [place] [address] CBC w/ Auto Diffon 1 Basophils Absolute Auto 0.03 10*3/uL Normal 0.00-0.10 [facility] Comment on above: Order Comment: Speci men Type: Unknown Relevant Clinical Information: See Reason(s) for Study Ordering Facility: [facility] Address: [address] [place] [address] Performed By: #### H H #### [facility] CLIA [id number] [address] [place] [address] Basophils/100 WBC (Bld) 0.7 % Normal 0.0-1.3 [facility] Comment on above: Order Comment: Speci men Type: Unknown Relevant Clinical Information: See Reason(s) for Study Ordering Facility: [facility] Address: [address] [place] [address] Performed By: #### H H #### [facility] CLIA [id number] [address] [place] [address] Eosinophils (Bld) [#/Vol] 0.06 10*3/uL Normal 0.00-0.50 [facility] Comment on above: Order Comment: Speci men Type: Unknown Relevant Clinical Information: See Reason(s) for Study Ordering Facility: [facility] Address: [address] [place] [address] Performed By: #### H H #### [facility] CLIA [id number] [address] [place] [address] Eosinophils/100 WBC (Bld) 1.4 % Normal 0.0-5.8 [facility] Comment on above: Order Comment: Speci men Type: Unknown Relevant Clinical Information: See Reason(s) for Study Ordering Facility: [facility] Address: [address] [place] [address] Performed By: #### H H #### [facility] CLIA [id number] [address] [place] [address] Erythrocyte distribution width (RBC) [Ratio] 15.6 % High 11.6-14.8 [facility] Comment on above: Order Comment: Speci men Type: Unknown Relevant Clinical Information: See Reason(s) for Study Ordering Facility: [facility] Address: [address] [place] [address] Performed By: #### H H #### [facility] CLIA [id number] [address] [place] [address] Hematocrit (Bld) [Volume fraction] 33.0 % Low 35.4-47.9 [facility] Comment on above: Order Comment: Speci men Type: Unknown Relevant Clinical Information: See Reason(s) for Study Ordering Facility: [facility] Address: [address] [place] [address] Performed By: #### H H #### [facility] CLIA [id number] [address] [place] [address] Hemoglobin (Bld) [Mass/Vol] 10.4 g/dL Low 11.9-16.0 [facility] Comment on above: Order Comment: Speci men Type: Unknown Relevant Clinical Information: See Reason(s) for Study Ordering Facility: [facility] Address: [address] [place] [address] Performed By: #### H H #### [facility] CLIA [id number] [address] [place] [address] Lymphocytes (Bld) [#/Vol] 1.09 10*3/uL Normal 0.80-3.30 [facility] Comment on above: Order Comment: Speci men Type: Unknown Relevant Clinical Information: See Reason(s) for Study Ordering Facility: [facility] Address: [address] [place] [address] Performed By: #### H H #### [facility] CLIA [id number] [address] [place] [address] Lymphocytes/100 WBC (Bld) 25.2 % Normal 13.4-45.1 [facility] Comment on above: Order Comment: Speci men Type: Unknown Relevant Clinical Information: See Reason(s) for Study Ordering Facility: [facility] Address: [address] [place] [address] Performed By: #### H H #### [facility] CLIA [id number] [address] [place] [address] MCH (RBC) [Entitic mass] 25.2 pg Low 27.2-33.0 [facility] Comment on above: Order Comment: Speci men Type: Unknown Relevant Clinical Information: See Reason(s) for Study Ordering Facility: [facility] Address: [address] [place] [address] Performed By: #### H H #### [facility] CLIA [id number] [address] [place] [address] MCHC (RBC) [Mass/Vol] 31.5 g/dL Low 31.9-35.1 [facility] Comment on above: Order Comment: Speci men Type: Unknown Relevant Clinical Information: See Reason(s) for Study Ordering Facility: [facility] Address: [address] [place] [address] Performed By: #### H H #### [facility] CLIA [id number] [address] [place] [address] MCV (RBC) [Entitic vol] 80.1 fL Low 82.1-97.1 [facility] Comment on above: Order Comment: Speci men Type: Unknown Relevant Clinical Information: See Reason(s) for Study Ordering Facility: [facility] Address: [address] [place] [address] Performed By: #### H H #### [facility] CLIA [id number] [address] [place] [address] Monocytes (Bld) [#/Vol] 0.29 10*3/uL Low 0.30-0.90 [facility] Comment on above: Order Comment: Speci men Type: Unknown Relevant Clinical Information: See Reason(s) for Study Ordering Facility: [facility] Address: [address] [place] [address] Performed By: #### H H #### [facility] CLIA [id number] [address] [place] [address] Monocytes/100 WBC (Bld) 6.7 % Normal 4.0-12.7 [facility] Comment on above: Order Comment: Speci men Type: Unknown Relevant Clinical Information: See Reason(s) for Study Ordering Facility: [facility] Address: [address] [place] [address] Performed By: #### H H #### [facility] CLIA [id number] [address] [place] [address] Neutrophils Absolute Auto 2.83 10*3/uL Normal 1.70-7.00 [facility] Comment on above: Order Comment: Speci men Type: Unknown Relevant Clinical Information: See Reason(s) for Study Ordering Facility: [facility] Address: [address] [place] [address] Performed By: #### H H #### [facility] CLIA [id number] [address] [place] [address] 04392 Neutrophils/100 WBC (Bld) 65.5 % Normal 41.1-75.9 [facility] Comment on above: Order Comment: Speci men Type: Unknown Relevant Clinical Information: See Reason(s) for Study Ordering Facility: [facility] Address: [address] [place] [address] Performed By: #### H H #### [facility] CLIA [id number] [address] [place] [address]32 Platelet mean volume (Bld) [Entitic vol] 10.0 fL Normal 8.6-12.2 [facility] Comment on above: Order Comment: Speci men Type: Unknown Relevant Clinical Information: See Reason(s) for Study Ordering Facility: [facility] Address: [address] [place] [address] Performed By: #### H H #### [facility] CLIA [id number] [address] [place] [address] 40051 Platelets (Bld) [#/Vol] 228 10*3/uL Normal 133-425 [facility] Comment on above: Order Comment: Speci men Type: Unknown Relevant Clinical Information: See Reason(s) for Study Ordering Facility: [facility] Address: [address] [place] [address] Performed By: #### H H #### [facility] CLIA [id number] [address] [place] [address] 05781 RBC (Bld) [#/Vol] 4.12 10*6/uL Normal 3.40-5.40 [facility] Comment on above: Order Comment: Speci men Type: Unknown Relevant Clinical Information: See Reason(s) for Study Ordering Facility: [facility] Address: [address] [place] [address] Performed By: #### H H #### [facility] CLIA [id number] [address] [place] [address] 49079 WBC (Bld) [#/Vol] 4.3 10*3/uL Low 4.5-11.0 [facility] Comment on above: Order Comment: Speci men Type: Unknown Relevant Clinical Information: See Reason(s) for Study Ordering Facility: [facility] Address: [address] [place] [address] Performed By: #### H H #### [facility] CLIA [id number] [address] [place], [place] [address] Basophils Absolute Auto 0.0 10.3/uL Normal 0.0-0.2 [facility] Comment on above: Order Comment: Speci men Type: Unknown Relevant Clinical Information: See Reason(s) for Study Ordering Facility: [facility] Address: [address] [place] [address] Performed By: #### C BC #### [facility] CLIA [id number] [address] [place], [place] [address] Basophils/100 WBC (Bld) 1 % Normal 0-3 [facility] Comment on above: Order Comment: Speci men Type: Unknown Relevant Clinical Information: See Reason(s) for Study Ordering Facility: [facility] Address: [address] [place] [address] Performed By: #### C BC #### [facility] CLIA [id number] [address] [place] [address] Eosinophils (Bld) [#/Vol] 0.1 10*3/uL Normal 0.0-0.7 [facility] Comment on above: Order Comment: Speci men Type: Unknown Relevant Clinical Information: See Reason(s) for Study Ordering Facility: [facility] Address: [address] [place] [address] Performed By: #### C BC #### [facility] CLIA [id number] [address] [place], [place] [address] Eosinophils/100 WBC (Bld) 1 % Normal 0-7 [facility] Comment on above: Order Comment: Speci men Type: Unknown Relevant Clinical Information: See Reason(s) for Study Ordering Facility: [facility] Address: [address] [place] [address] Performed By: #### C BC #### [facility] CLIA [id number] [address] [place] [address] Erythrocyte distribution width (RBC) [Ratio] 16.2 % High 11.6-14.8 [facility] Comment on above: Order Comment: Speci men Type: Unknown Relevant Clinical Information: See Reason(s) for Study Ordering Facility: [facility] Address: [address] [place] [address] Performed By: #### C BC #### [facility] CLIA [id number] [address] [place] [address] Hematocrit (Bld) [Volume fraction] 32.3 % Low 37.7-53.7 [facility] Comment on above: Order Comment: Speci men Type: Unknown Relevant Clinical Information: See Reason(s) for Study Ordering Facility: [facility] Address: [address] [place] [address] Performed By: #### C BC #### [facility] CLIA [id number] [address] [place] [address] Hemoglobin (Bld) [Mass/Vol] 10.4 g/dL Low 12.2-18.1 [facility] Comment on above: Order Comment: Speci men Type: Unknown Relevant Clinical Information: See Reason(s) for Study Ordering Facility: [facility] Address: [address] [place] [address] Performed By: #### C BC #### [facility] CLIA [id number] [address] [place] [address] Lymphocytes (Bld) [#/Vol] 0.7 10*3/uL Normal 0.6-3.4 [facility] Comment on above: Order Comment: Speci men Type: Unknown Relevant Clinical Information: See Reason(s) for Study Ordering Facility: [facility] Address: [address] [place] [address] Performed By: #### C BC #### [facility] CLIA [id number] [address] [place] [address] Lymphocytes/100 WBC (Bld) 19 % Normal 10-50 [facility] Comment on above: Order Comment: Speci men Type: Unknown Relevant Clinical Information: See Reason(s) for Study Ordering Facility: [facility] Address: [address] [place] [address] Performed By: #### C BC #### [facility] CLIA [id number] [address] [place] [address] MCH (RBC) [Entitic mass] 25.9 pg Low 27.0-31.2 [facility] Comment on above: Order Comment: Speci men Type: Unknown Relevant Clinical Information: See Reason(s) for Study Ordering Facility: [facility] Address: [address] [place] [address] Performed By: #### C BC #### [facility] CLIA [id number] [address] [place] [address] MCHC (RBC) [Mass/Vol] 32.2 g/dL Normal 31.8-35.4 [facility] Comment on above: Order Comment: Speci men Type: Unknown Relevant Clinical Information: See Reason(s) for Study Ordering Facility: [facility] Address: [address] [place] [address] Performed By: #### C BC #### [facility] CLIA [id number] [address] [place] [address] MCV (RBC) [Entitic vol] 81 fL Normal 81-97 [facility] Comment on above: Order Comment: Speci men Type: Unknown Relevant Clinical Information: See Reason(s) for Study Ordering Facility: [facility] Address: [address] [place] [address] Performed By: #### C BC #### [facility] CLIA [id number] [address] [place] [address] Monocytes (Bld) [#/Vol] 0.2 10*3/uL Normal 0.0-0.9 [facility] Comment on above: Order Comment: Speci men Type: Unknown Relevant Clinical Information: See Reason(s) for Study Ordering Facility: [facility] Address: [address] [place] [address] Performed By: #### C BC #### [facility] CLIA [id number] [address] [place], [place] [address] Monocytes/100 WBC (Bld) 6 % Normal 0-12 [facility] Comment on above: Order Comment: Speci men Type: Unknown Relevant Clinical Information: See Reason(s) for Study Ordering Facility: [facility] Address: [address] [place] [address] Performed By: #### C BC #### [facility] CLIA [id number] [address] [place] [address] Neutrophils Absolute Auto 2.7 10*3/uL Normal 2.0-6.9 [facility] Comment on above: Order Comment: Speci men Type: Unknown Relevant Clinical Information: See Reason(s) for Study Ordering Facility: [facility] Address: [address] [place] [address] Performed By: #### C BC #### [facility] CLIA [id number] [address] [place] [address] Neutrophils/100 WBC (Bld) 74 % Normal 37-80 [facility] Comment on above: Order Comment: Speci men Type: Unknown Relevant Clinical Information: See Reason(s) for Study Ordering Facility: [facility] Address: [address] [place] [address] Performed By: #### C BC #### [facility] CLIA [id number] [address] [place] [address] Platelet mean volume (Bld) [Entitic vol] 9.5 fL Normal 7.0-11.0 [facility] Comment on above: Order Comment: Speci men Type: Unknown Relevant Clinical Information: See Reason(s) for Study Ordering Facility: [facility] Address: [address] [place] [address] Performed By: #### C BC #### [facility] CLIA [id number] [address] [place] [address]7945 Platelets (Bld) [#/Vol] 207 10*3/uL Normal 150-440 [facility] Comment on above: Order Comment: Speci men Type: Unknown Relevant Clinical Information: See Reason(s) for Study Ordering Facility: [facility] Address: [address] [place] [address] Performed By: #### C BC #### [facility] CLIA [id number] [address] [place] [address] 17191 RBC (Bld) [#/Vol] 4.01 10*6/uL Low 4.04-6.13 [facility] Comment on above: Order Comment: Speci men Type: Unknown Relevant Clinical Information: See Reason(s) for Study Ordering Facility: [facility] Address: [address] [place] [address] Performed By: #### C BC #### [facility] CLIA [id number] [address] [place] [address] WBC (Bld) [#/Vol] 3.6 10*3/uL Low 4.6-10.2 Veena je[facility] Comment on above: Order Comment: Speci men Type: Unknown Relevant Clinical Information: See Reason(s) for Study Ordering Facility: [facility] Address: [address] [place] [address] Performed By: #### C BC #### [facility] CLIA [id number] [address] [place] [address] Comprehensive Metabolic Pane taryn 01-14-2021 Glucose [Mass/Vol] 667 mg/dL Critically high 74-106 [facility] Comment on above: Order Comment: Speci men Type: Unknown Relevant Clinical Information: See Reason(s) for Study Ordering Facility: [facility] Address: [address] [place] [address] Performed By: #### H H #### [facility] CLIA [id number] [address] [place] [address] Albumin [Mass/Vol] 3.8 g/dL Normal 3.4-5.0 Veena jeong [facility] Comment on above: Order Comment: Speci men Type: Unknown Relevant Clinical Information: See Reason(s) for Study Ordering Facility: [facility] Address: [address] [place] [address] Performed By: #### H H #### [facility] CLIA [id number] [address] [place] [address] ALP [Catalytic activity/Vol] 159 U/L High 46-116 [facility] Comment on above: Order Comment: Speci men Type: Unknown Relevant Clinical Information: See Reason(s) for Study Ordering Facility: [facility] Address: [address] [place] [address] Result Comment: Plea se note new reference range Performed By: #### H H #### [facility] CLIA [id number] [address] [place], [place] [address] ALT [Catalytic activity/Vol] 24 U/L Normal 10-49 [facility] Comment on above: Order Comment: Speci men Type: Unknown Relevant Clinical Information: See Reason(s) for Study Ordering Facility: [facility] Address: [address] [place] [address] Result Comment: Plea se note new reference range Performed By: #### H H #### [facility] CLIA [id number] [address] [place] [address] AST [Catalytic activity/Vol] 27 U/L Normal <34 [facility] Comment on above: Order Comment: Speci men Type: Unknown Relevant Clinical Information: See Reason(s) for Study Ordering Facility: [facility] Address: [address] [place] [address] Result Comment: Plea se note new reference range Performed By: #### H H #### [facility] CLIA [id number] [address] [place] [address] Bilirubin [Mass/Vol] 0.8 mg/dL Normal 0.3-1.2 [facility] Comment on above: Order Comment: Speci men Type: Unknown Relevant Clinical Information: See Reason(s) for Study Ordering Facility: [facility] Address: [address] [place] [address] Result Comment: Plea se note new reference range Performed By: #### H H #### [facility] CLIA [id number] [address] [place] [address] Calcium [Mass/Vol] 9.5 mg/dL Normal 8.3-10.6 [facility] Comment on above: Order Comment: Speci men Type: Unknown Relevant Clinical Information: See Reason(s) for Study Ordering Facility: [facility] Address: [address] [place] [address] Result Comment: Plea se note new reference range Performed By: #### H H #### [facility] CLIA [id number] [address] [place], [place] [address] Chloride [Moles/Vol] 96 mmol/L Low 98-107 [facility] Comment on above: Order Comment: Speci men Type: Unknown Relevant Clinical Information: See Reason(s) for Study Ordering Facility: [facility] Address: [address] [place] [address] Result Comment: Plea se note new reference range Performed By: #### H H #### [facility] CLIA [id number] [address] [place] [address] CO2 [Moles/Vol] 24 mmol/L Normal 20-31 [facility] Comment on above: Order Comment: Speci men Type: Unknown Relevant Clinical Information: See Reason(s) for Study Ordering Facility: [facility] Address: [address] [place] [address] Result Comment: Plea se note new reference range Performed By: #### H H #### [facility] CLIA [id number] [address] [place] [address] Creatinine [Mass/Vol] 1.054 mg/dL High 0.55-1.02 [facility] Comment on above: Order Comment: Speci men Type: Unknown Relevant Clinical Information: See Reason(s) for Study Ordering Facility: [facility] Address: [address] [place] [address] Performed By: #### H H #### [facility] CLIA [id number] [address] [place] [address] GFR/1.73 sq M.predicted MDRD (S/P/Bld) [Vol rate/Area] 62 mL/min/{1.73_m2} Normal [facility] Comment on above: Order Comment: Speci men Type: Unknown Relevant Clinical Information: See Reason(s) for Study Ordering Facility: [facility] [place] Address: [address] [place], [place] [id number] Result Comment: K/DO QI Guideline: Stage 1 >/=90 mL/min/1.73m2 - Not Consistent with CKD Stage 2 60-89 mL/min/1.73m2 - Consistent with Mild CKD Stage 3 30-59 mL/min/1.73m2 - Consistent with Moderate CKD Stage 4 15-29 mL/min/1.73m2 - Consistent with Severe CKD Stage 5 <15 mL/min/1.73m2 - Consistent with Kidney Failure Estimated Glomerular Filtration Rate (eGFR) is a calculated value utilizing the MDRD equation and provides an estimate of renal function. The equation assumes a steady state and should not be used for patients that meet any of the following criteria: - Are younger than 18 or older than 70 - Have rapidly fluctuating kidney function - Are - Have serious comorbid conditions - Have extremes of body size - Have extremes of muscle mass - Have extremes of nutritional status - Are non- or non- - Have normal kidney function Performed By: #### H H #### [facility] CLIA [id number] [address] [place] [address] Potassium [Moles/Vol] 4.0 mmol/L Normal 3.5-5.1 [facility] Comment on above: Order Comment: Speci men Type: Unknown Relevant Clinical Information: See Reason(s) for Study Ordering Facility: [facility] Address: [address] [place] [address] Performed By: #### H H #### [facility] CLIA [id number] [address] [place] [address]382 Protein [Mass/Vol] 7.4 g/dL Normal 5.7-8.2 Veena jeong [facility] Comment on above: Order Comment: Speci men Type: Unknown Relevant Clinical Information: See Reason(s) for Study Ordering Facility: [facility] Address: [address] [place] [address] Result Comment: Marcela de souza note new reference range Performed By: #### H H #### [facility] CLIA [id number] [address] [place] [address] Sodium [Moles/Vol] 129 mmol/L Low 136-145 Veena jeong [facility] Comment on above: Order Comment: Speci men Type: Unknown Relevant Clinical Information: See Reason(s) for Study Ordering Facility: [facility] Address: [address] [place] [address] Performed By: #### H H #### [facility] CLIA [id number] [address] [place] [address] Urea nitrogen [Mass/Vol] 8 mg/dL Low 9-23 [facility] Comment on above: Order Comment: Speci men Type: Unknown Relevant Clinical Information: See Reason(s) for Study Ordering Facility: [facility] Address: [address] [place] [address] Result Comment: Plea se note new reference range Performed By: #### H H #### [facility] CLIA [id number] [address] [place] [address] Emergency Department Noteon 01-14-2021 Emergency Department Note [facility] [place] [address] Emergency Department Note Signed Patient: Jae Martin MR#: [id number] : 1985 Acct: [id number] Age/Sex: 35 / F ADM Date: 01/14/21 Loc: ER. Attending Dr: cc: HPI - General Adult General Chief complaint: Recheck/Abnormal Lab/Rx Stated complaint: Abnormal labs/ headache Time Seen by Provider: 01/14/21 16:43 History of Present Illness HPI narrative: 35-year-old female presents with abnormal labs. Had lab work done at urgent care. Does not have a primary care doctor. Blood sugar was noted be over 500. In route blood sugar was found to be in the 300s. Denies any known history diabetes. Reports history of von Willebrand's, anemia. Has been having a headache for 3 days. Does report over the last year having intermittent left upper and lower extremity tingling. Denies any weakness. Denies blurry vision, has occasionally had floaters. Denies any eye irritation or drainage. Does report polydipsia, polyuria. No abdominal pain. Jaems urinary symptoms, changes in bowels. ROS: Constitutional: (-)Weight Change, (-) Fever, (-) Chills ENT/Mouth: (-) Ear Pain,(-) Nasal Congestion (-) Hoarseness, Eyes: (-) Eye Pain, (-) Redness, (-) Discharge, (-) Vision Changes Cardiovascular: (-) Chest Pain, (-) syncope (-) PND, (-) Dyspnea on Exertion Respiratory: (-) Cough, (-) Sputum, (-) Wheezing, (-) Dyspnea Gastrointestinal: (-) Nausea, (-) Vomiting, (-) Diarrhea, (-) Constipation, (-) Melena, (- )abdominal pain Genitourinary: (-) Dysuria, (+) Urinary Frequency, (-) Flank Pain, Musculoskeletal: (-) Arthralgias (-) Joint Swelling, (-) Joint Stiffness, Skin: (-) Skin Lesions, (-) Pruritis, (-) Hair Changes, Neuro: (-) Weakness, (-) Numbness, (-) Paresthesias, (+) Headache, Psych: (-) Anxiety/Panic, (-) Depression, Endocrine: (-) Polyuria, (-) Polydipsia, (-) Temperature Intolerance Physical exam: Constitutional: no acute distress, AOx3, cooperative. HEENT: Normocephalic, no evidence of facial trauma trachea midline, dry mucous membrane Neck: full ROM, no LAD, no JVD Chest: equal chest wall rise, no crepitus Cardio: RRR. no m/r/g Resp: CTAB, no increased WOB Abdomen: soft to palpation, no rebound or guarding, no distention, no organomegaly. Extremity: normal to inspection, 2+ peripheral pulses. no deformity. Neuro: AOx3, CN2-12 grossly intact, KEENE, no focal motor deficit, no focal sensory deficit. Skin: no rash, no lesions, no jaundice Related Data Home Medications Medication Instructions Recorded Confirmed cyclobenzaprine 5 mg ORAL Q8H PRN 01/14/21 meloxicam 15 mg ORAL DAILY 01/14/21 omeprazole 40 mg ORAL DAILYPPI 01/14/21 Previous Rx's Medication Instructions Recorded cephalexin 500 mg ORAL BID 5 Days #10 cap 01/14/21 fluconazole [Diflucan] 150 mg ORAL ONCE #1 tab 01/14/21 metformin 500 mg ORAL DAILY #30 tablet 01/14/21 Allergies Allergy/AdvReac Type Severity Reaction Status Date / Time aspirin Allergy thins Verified 01/12/21 14:02 blood promethazine [From Phenergan] Allergy Verified 01/12/21 14:02 PFSH PFSH Medical History GERD (gastroesophageal reflux disease) Musculoskeletal pain Otitis externa Otitis media Von Willebrand disease Surgical History History of Family History Mother Seizures Father Diabetes mellitus Other Heart disease Social History Advance Directives: No Advance Directives on File: No Smoking Status: Never smoker Former alcohol user?: No How often do you have a drink containing alcohol: never How often do you have six or more drinks on one occasion: Never Non prescribed substance use: denies use caffeine: No Have You Been Hit, Kicked, Punched, or Otherwise Hurt By Someone Within the Past Year? If So, By Whom?: No Do you feel safe in your current relationship?: Yes Is There a Partner from a Previous Relationship Who is Making You Feel Unsafe Now?: No Mother Seizures Father Diabetes mellitus Other Heart disease Course Vital Signs Vital signs: Vital Signs Temperature 98.1 F 01/14/21 15:53 Pulse Rate 101 H 01/14/21 15:53 Respiratory Rate 18 01/14/21 15:53 Blood Pressure 120/80 01/14/21 15:53 Pulse Oximetry 98 01/14/21 15:53 Temperature 98.8 F 01/14/21 16:46 Pulse Rate 92 H 01/14/21 16:46 Respiratory Rate 18 01/14/21 16:46 Blood Pressure 128/83 01/14/21 16:46 Pulse Oximetry 97 01/14/21 16:46 Oxygen Delivery/Flow Rate/FiO2 Oxygen Delivery Method Room Air 01/14/21 16:46 Oxygen Delivery Method Room Air 01/14/21 15:53 Medical Decision Making (more content not included)... Normal [facility] Ferritinon 01-14-2021 Ferritin [Mass/Vol] 20.0 ng/mL Normal 7.3-270.7 [facility] Comment on above: Order Comment: Speci men Type: Unknown Relevant Clinical Information: See Reason(s) for Study Ordering Facility: [facility] Address: [address] [place] [address] Result Comment: Marcela de souza note new reference range Performed By: #### F ESAT, SCOOBY #### [facility] Glucometer POCon 01-14-2021 Glucose [Mass/Vol] 277 mg/dL High 70-110 [facility] Comment on above: Order Comment: Speci men Type: Unknown Relevant Clinical Information: See Reason(s) for Study Ordering Facility: [facility] Address: [address] [place] [address] Performed By: #### C BC #### [facility] CLIA [id number] [address] [place] [address] Hemoglobin A1Con 01-14-2021 HbA1c (Bld) [Mass fraction] 11.8 % High <5.7 [facility] Comment on above: Order Comment: Speci men Type: Unknown Relevant Clinical Information: See Reason(s) for Study Ordering Facility: [facility] Address: [address] [place] [address] Result Comment: Expe cted Values Suggested Diagnosis Diabetic >=6.5 (%) Prediabetes 5.7-6.4 (%) Normal <5.7 (%) Performed By: #### H H #### [facility] CLIA [id number] [address] [place] [address] Iron TIBC Saturationon 01-14 Iron [Mass/Vol] 127 ug/dL Normal 50-170 [facility] [facility] Comment on above: Order Comment: Speci men Type: Unknown Relevant Clinical Information: See Reason(s) for Study Ordering Facility: [facility] Address: [address] [place] [address] Performed By: #### F ESAT, SCOOBY #### [facility] Laboratory Iron Saturation 35 % Normal 15-50 [facility] Comment on above: Order Comment: Speci men Type: Unknown Relevant Clinical Information: See Reason(s) for Study Ordering Facility: [facility] Address: [address] [place] [address] Performed By: #### F ESAAutumn, SCOOBY #### [facility] Laboratory TIBC 366 ug/dL Normal 250-425 [facility] Comment on above: Order Comment: Speci men Type: Unknown Relevant Clinical Information: See Reason(s) for Study Ordering Facility: [facility] Address: [address] [place] [address] Result Comment: Plea se note new reference range Performed By: #### F EBRTA, SCOOBY #### [facility] Laboratory UA Reflex to Micro and Cultu reon 01-14-2021 Color (U) Dark Yellow Normal Yellow [facility] Comment on above: Order Comment: Speci men Type: Unknown Relevant Clinical Information: See Reason(s) for Study Ordering Facility: [facility] Address: [address] [place] [address] Performed By: #### H H #### [facility] CLIA [id number] [address] [place] [address] Appearance (U) Cloudy Abnormal Clear [facility] Comment on above: Order Comment: Speci men Type: Unknown Relevant Clinical Information: See Reason(s) for Study Ordering Facility: [facility] Address: [address] [place] [address] Performed By: #### H H #### [facility] CLIA [id number] [address] [place] [address] Bilirubin Urine Negative Normal Negative [facility] Comment on above: Order Comment: Speci men Type: Unknown Relevant Clinical Information: See Reason(s) for Study Ordering Facility: [facility] Address: [address] [place] [address] Performed By: #### H H #### [facility] CLIA [id number] [address] [place] [address] Blood Urine Large Abnormal Negative [facility] Comment on above: Order Comment: Speci men Type: Unknown Relevant Clinical Information: See Reason(s) for Study Ordering Facility: [facility] Address: [address] [place] [address] Performed By: #### H H #### [facility] CLIA [id number] [address] [place] [address] Glucose Urine UA >=1000 Abnormal Negative [facility] Comment on above: Order Comment: Speci men Type: Unknown Relevant Clinical Information: See Reason(s) for Study Ordering Facility: [facility] Address: [address] [place] [address] Performed By: #### H H #### [facility] CLIA [id number] [address] [place] [address] Ketones Ql (U) Trace Abnormal Negative [facility] Comment on above: Order Comment: Speci men Type: Unknown Relevant Clinical Information: See Reason(s) for Study Ordering Facility: [facility] Address: [address] [place] [address] Performed By: #### H H #### [facility] CLIA [id number] [address] [place] [address] Leukocyte Esterase Ur Negative Normal Negative [facility] Comment on above: Order Comment: Speci men Type: Unknown Relevant Clinical Information: See Reason(s) for Study Ordering Facility: [facility] Address: [address] [place] [address] Performed By: #### H H #### [facility] CLIA [id number] [address] [place] [address] Nitrite Urine Positive Abnormal Negative [facility] Comment on above: Order Comment: Speci men Type: Unknown Relevant Clinical Information: See Reason(s) for Study Ordering Facility: [facility] Address: [address] [place] [address] Performed By: #### H H #### [facility] CLIA [id number] [address] [place] [address] pH (U) 5.0 [pH] Normal <=7.5 [facility] Comment on above: Order Comment: Speci men Type: Unknown Relevant Clinical Information: See Reason(s) for Study Ordering Facility: [facility] Address: [address] [place] [address] Performed By: #### H H #### [facility] CLIA [id number] [address] [place] [address] Protein Urine 30 Abnormal Negative [facility] Comment on above: Order Comment: Speci men Type: Unknown Relevant Clinical Information: See Reason(s) for Study Ordering Facility: [facility] Address: [address] [place] [address] Performed By: #### H H #### [facility] CLIA [id number] [address] [place] [address] Specific [place] Ur 1.045 High 1.005-1.025 [facility] Comment on above: Order Comment: Speci men Type: Unknown Relevant Clinical Information: See Reason(s) for Study Ordering Facility: [facility] Address: [address] [place] [address] Performed By: #### H H #### [facility] CLIA [id number] [address] [place] [address] Urine Type Clean Catch Normal [facility] Comment on above: Order Comment: Speci men Type: Unknown Relevant Clinical Information: See Reason(s) for Study Ordering Facility: [facility] Address: [address] [place] [address] Performed By: #### H H #### [facility] CLIA [id number] [address] [place] [address] Urobilinogen Urine 1.0 E.U./dL Normal 0-2.0 [facility] Comment on above: Order Comment: Speci men Type: Unknown Relevant Clinical Information: See Reason(s) for Study Ordering Facility: [facility] Address: [address] [place] [address] Performed By: #### H H #### [facility] CLIA [id number] [address] [place] [address] Urine Microscopicon 01-15-20 21 Budding Yeast Urine Present Abnormal None [facility] Comment on above: Order Comment: Speci men Type: Unknown Relevant Clinical Information: See Reason(s) for Study Ordering Facility: [facility] Address: [address] [place] [address] Performed By: #### H H #### [facility] CLIA [id number] [address] [place], [place] [address] Hyaline Casts Urine 0 /LPF Normal 0-5 [facility] Comment on above: Order Comment: Speci men Type: Unknown Relevant Clinical Information: See Reason(s) for Study Ordering Facility: [facility] Address: [address] [place] [address] Performed By: #### H H #### [facility] CLIA [id number] [address] [place] [address] RBC LM.HPF (Urine sed) [#/Area] /[HPF] High 0-5 [facility] Comment on above: Order Comment: Speci men Type: Unknown Relevant Clinical Information: See Reason(s) for Study Ordering Facility: [facility] Address: [address] [place] [address] Performed By: #### H H #### [facility] CLIA [id number] [address] [place] [address] Squamous Epithelial Cell Urine 4 /HPF Normal 0-4 [facility] Comment on above: Order Comment: Speci men Type: Unknown Relevant Clinical Information: See Reason(s) for Study Ordering Facility: [facility] Address: [address] [place] [address] Performed By: #### H H #### [facility] CLIA [id number] [address] [place] [address] Urine Bacteria Many Abnormal None [facility] Comment on above: Order Comment: Speci men Type: Unknown Relevant Clinical Information: See Reason(s) for Study Ordering Facility: [facility] Address: [address] [place] [address] Performed By: #### H H #### [facility] CLIA [id number] [address] [place] [address] WBC LM.HPF (Urine sed) [#/Area] 19 /[HPF] High 0-4 [facility] Comment on above: Order Comment: Speci men Type: Unknown Relevant Clinical Information: See Reason(s) for Study Ordering Facility: [facility] Address: [address] [place] [address] Performed By: #### H H #### [facility] CLIA [id number] [address] [place] [address] Urgent Care Noteon 1 Urgent Care Note [facility]ly [facility] [address] [facility] 2nd [place] [address] Urgent Care Note Signed with Addenda Patient: Jae Martin MR#: [id number] : 1985 Acct: [id number] Age/Sex: 35 / F Loc: [facility]. Date of Service: 01/12/[address]: Hector España CNP cc: ADDENDUM Office Procedure Documentation entered by Sarah Nweell LPN 01/12/21 15:23: Office Meds ketorolac Performing Provider: Hector España CNP Administered by: Sarah Newell LPN on 01/12/21 15:20 Dose Route Admin Location Lot Number Expiration Date [employer] Manufactu rer 30 mg IM Right Gluteus Dread 07/10/22 [id number] [employer] Comments: Administered 30 mg of Ketorolac per Hector España. Addendum Dictated By: Addendum Signed By: 01/12/21 1 523 Addendum Cosigned By: DD/ /30/1522 TD/TT: 01/12/2106/30/1522 Intake Vital Signs ([facility]) 01/12/21 14:05 Height 5 ft 1 in Weight 201 lb 0.985 oz BMI 38.0 BP 132/86 Blood Pressure Location Lt brachial Position Sitting Respiration 16 Pulse 95 H Pulse Source Monitor Temp 98.5 F Temp Source Temporal Artery Scan Pulse Oximetry (%) 98 Oxygen Delivery Method Room Air Intake Visit Reasons: chest pain, arm numbness Is patient in acute pain: No Allergies aspirin Allergy (Verified 01/12/21 14:02) thins blood promethazine [From Phenergan] Allergy (Verified 01/12/21 14:02) Medications - Last Reconciled 01/12/21 by Heidi Márqeuz LPN cyclobenzaprine 5 mg ORAL Q8H meloxicam 15 mg ORAL DAILY omeprazole 40 mg ORAL DAILY 12 weeks Smoking risk assessment performed?: Yes Smoking Status: Never smoker Annual Influenza Vaccine: No Flu Vaccine not done: patient reason Have you had a cervical cancer screening(PAP smear) in the past 3 years?: Yes Is last menstrual period known: Yes Last menstrual period: 01/12/21 Patient : No History History 3 Elective abortions Para 3 Spontaneous abortions Hx # Term Pregnancies 3 Ectopic pregnancies Hx # Pregnancies Multiple births Specific Travel Risk - COVID-19 Travel from high risk country; contact w/ high risk person(s): No COVID-19 Symptoms: No PHQ-2/9 . Over the last 2 weeks, how often have you been bothered by any of the following problems? 1. Little interest or pleasure in doing things: not at all 2. Feeling down, depressed, or hopeless: not at all PHQ-2: Total score: 0 9. Thoughts that you would be better off or of hurting yourself in some way: not at all 0-4 None-Minimal, 5-9 Mild, 10-14 Moderate, 15-19 Moderately Severe, 20-27 Severe Source: Developed by Drs. Tommy Castellano, Juany Fagan, Pato Wood and colleagues, with an educational scotty from [employer]. .. Nurse's Note Nurse's Note: pt c/o * left arm feels numb on and off * left sided chest pain that is on and off only when pt bends over. There is no current chest pain at this time symptoms started yesterday home tx: no OTC meds today HPI Urgent Care HPI COVID-19 Testing ordered at today's visit?: No Patient notified of today's COVID test results/has an attempt been made to notify patient of results?: No Details: Patient is a 35-year-old female presented to [place] urgent care today for evaluation of a headache and an episode of chest discomfort. Patient reports that she bent over yesterday and she developed a sharp sudden substernal chest pain that lasted for approximately 15 to 20 seconds after that the chest pain subsided. Patient reports that she has had a headache for the past 3 days and she has been taking ibuprofen and Tylenol with no relief. Patient rates her pain a 6 out of 10 on the numeric scale she does report that lights and sounds aggravate the headache. Patient denies any shortness of breath or chest pain on exertion she also denies any previous cardiac history [facility] Medical History GERD (gastroesophageal reflux disease) Musculoskeletal pain Otitis externa Otitis media Von Willebrand disease Surgical History History of Family History Mother Seizures Father Diabetes mellitus Other Heart disease Social History Advance Directives: No Advance Directives on File: No Smoking Status: Never smoker Former alcohol user?: No How often do you have a drink containing alcohol: never How often do you have six or more drinks on one occasion: Never Non prescribed substance use: denies use Travel outside of [place] in last 30 days?: No caffeine: No Mother Seizures Father Diabetes mellitus Other Heart disease Questionnair (more content not included)... Normal [facility] SARS-COV-2, PCRon 12-19-2020 SARS-CoV-2 (COVID-19) RNA NENA+probe Ql (Unsp spec) Not detected Normal Not Detect [facility] Comment on above: Order Comment: Speci men Type: Unknown Relevant Clinical Information: See Reason(s) for Study Ordering Facility: [facility] Address: [address] [place] [address] Result Comment: The sensitivity of the assay is dependent on the quality of the specimen collected for testing. The test is specific for severe acute respiratory syndrome coronavirus 2 (SARS-CoV-2), and positive test results do not exclude the possibility of concurrent infection with other respiratory viruses. Negative results do not preclude infection with SARS-CoV-2 and should not be used as the sole basis for decisions on treatment or other patient care management. This test has been authorized by FDA under an Emergency Use Authorization (EUA). This test is only authorized for the duration of time the declaration that circumstances exist justifying the authorization of the emergency use of in vitro diagnostic tests for detection of SARS-CoV-2 virus and/or diagnosis of COVID-19 infection under section 564(b)(1) of the Act, 21 U.S.C. 360bbb-3(b)(1), unless the authorization is terminated or revoked sooner. Performed By: #### C BC #### [facility] CLIA [id number] [address] [place] [id number] Virtual Visiton 12-18-2020 Virtual Visit Care Center [address] [place] [address], [address] [address] Virtual Visit Signed Patient: Jae Martin MR#: [id number] : 1985 Acct: [id number] Age/Sex: 35 / F Loc: AM.CC Date of Service: 12/18/[address]: Viktoriya Johnson CNP cc: Intake Vital Signs ([facility]) 12/18/20 14:17 Height 5 ft 1 in Weight 215 lb 15.79 oz BMI 40.8 Intake Visit Reasons: doxy [phone] sore throat Allergies aspirin Allergy (Verified 12/18/20 14:17) thins blood promethazine [From Phenergan] Allergy (Verified 12/18/20 14:17) Medications - Last Reconciled 12/18/20 by Dian Salomon, KELLY cyclobenzaprine 5 mg ORAL Q8H meloxicam 15 mg ORAL DAILY omeprazole 40 mg ORAL DAILY 12 weeks Smoking risk assessment performed?: Yes Smoking Status: Former smoker Annual Influenza Vaccine: No Flu Vaccine not done: patient reason Have you had a cervical cancer screening(PAP smear) in the past 3 years?: No Is last menstrual period known: No PFSH Medical History GERD (gastroesophageal reflux disease) Musculoskeletal pain Otitis externa Otitis media Von Willebrand disease Surgical History History of Family History Mother Seizures Father Diabetes mellitus Other Heart disease Social History Advance Directives: No Advance Directives on File: No Smoking Status: Former smoker Former alcohol user?: No How often do you have a drink containing alcohol: never How often do you have six or more drinks on one occasion: Never Non prescribed substance use: denies use Travel outside of [place] in last 30 days?: No caffeine: No Mother Seizures Father Diabetes mellitus Other Heart disease HPI Virtual Visit HPI COVID-19 Testing ordered at today's visit?: Yes Monoclonal antibody criteria for adults (>= 18 years) or pediatrics (12-17 years) at least one of the below high risk factors for progression to severe COVID-19: age >= 65; chronic kidney disease; chronic lung disease, cardiovascular disease, diabetes, immunosuppressive disease or immunosuppressive treatments, medical related technological dependence (trach; gastrostomy, positive ventilation not related to COVID); Neurodevelopmental disorder (cerebral palsy, severe congenital anomalies, genetic or metabolic syndromes); Obese/overweight adult (BMI>25) or pediatric (BMI >85th percentile); ; sickle cell. Does patient meet criteria for monoclonal antibody treatment?: Yes Provider had conversation about shared decision making with patient. Patient has decided to have monoclonal antibody infusion if COVID testing is positive: Yes Patient notified of today's COVID test results/has an attempt been made to notify patient of results?: No Details: This visit was conducted remotely via real time communication between the patient and the provider. The patient consent for this virtual visit was obtained on 12/18/20. Patient is a 35-year-old female Doxy visit complain of sore throat, cough, emesis x (1 today), chills, headache x 3 days. drinking elia mist without emesis Exposed to Covid unknown. Vaccine no Home treatment none Is the patient in the right setting: Yes Questionnaire C-SSRS (Primary Care) [employer] Review of Systems [facility] Const Reports chills, Denies fever(s) and Reports headache(s) ENT Reports headache(s) and sore throat Card Denies dyspnea Resp Denies wheezing or dyspnea GI Denies abdominal pain, Denies diarrhea, Denies nausea and Reports vomiting Neuro Reports headache(s) Aller/Immun Denies wheezing Exam (AMB) Const Common normals: Yes no acute distress, Yes patient oriented x3, Yes healthy appearing, Yes mood/affect normal and Yes well nourished HEENT Common normals: normocephalic Head and scalp: normocephalic Respiratory Other: Pt speaking in full sentences without difficulty. Neuro Common normals: patient oriented x3 COVID Assessment (AMB) Symptoms Symptoms (COVID Virtual Visit): reports Fever, Headaches, Sore throat, Loss of ability to smell / taste, Cough and Shortness of breath / difficulty breathing Assessment Plan (AMB) Assessment Plan (1) Encounter for screening laboratory testing for COVID-19 virus: Code(s): Z20.822 - Contact with and (suspected) exposure to COVID-19 Orders: Orders: SARS-COV-2, PCR Today Patient Instructions: Covid 19 test ordered. Suggested that you self isolate at home until you receive a call with your results from Call Center or from Health Dept. Increase fluids. Take over the counter medications as needed for symptom control. (more content not included)... Normal [facility] CBC w/ Auto Diffon 1 Basophils Absolute Auto 0.1 10.3/uL Normal 0.0-0.2 [facility] Comment on above: Order Comment: Speci men Type: Unknown Relevant Clinical Information: See Reason(s) for Study Ordering Facility: [facility] Address: [address] [place] [address] Performed By: #### C BC #### [facility] Basophils/100 WBC (Bld) 1 % Normal 0-3 [facility] Comment on above: Order Comment: Speci men Type: Unknown Relevant Clinical Information: See Reason(s) for Study Ordering Facility: [facility] Address: [address] [place] [address] Performed By: #### C BC #### [facility] Eosinophils (Bld) [#/Vol] 0.1 10*3/uL Normal 0.0-0.7 [facility] Comment on above: Order Comment: Speci men Type: Unknown Relevant Clinical Information: See Reason(s) for Study Ordering Facility: [facility] Address: [address] [place] [address] Performed By: #### C BC #### [facility] Eosinophils/100 WBC (Bld) 1 % Normal 0-7 [facility] Comment on above: Order Comment: Speci men Type: Unknown Relevant Clinical Information: See Reason(s) for Study Ordering Facility: [facility] Address: [address] [place] [address] Performed By: #### C BC #### [facility] Erythrocyte distribution width (RBC) [Ratio] 13.6 % Normal 11.6-14.8 [facility] Comment on above: Order Comment: Speci men Type: Unknown Relevant Clinical Information: See Reason(s) for Study Ordering Facility: [facility] Address: [address] [place] [address] Performed By: #### C BC #### [facility] Hematocrit (Bld) [Volume fraction] 39.3 % Normal 37.7-53.7 [facility] Comment on above: Order Comment: Speci men Type: Unknown Relevant Clinical Information: See Reason(s) for Study Ordering Facility: [facility] Address: [address] [place] [address] Performed By: #### C BC #### [facility] Hemoglobin (Bld) [Mass/Vol] 13.0 g/dL Normal 12.2-18.1 [facility] Comment on above: Order Comment: Speci men Type: Unknown Relevant Clinical Information: See Reason(s) for Study Ordering Facility: [facility] Address: [address] [place] [address] Performed By: #### C BC #### [facility] Lymphocytes (Bld) [#/Vol] 1.3 10*3/uL Normal 0.6-3.4 [facility] Comment on above: Order Comment: Speci men Type: Unknown Relevant Clinical Information: See Reason(s) for Study Ordering Facility: [facility] Address: [address] [place] [address] Performed By: #### C BC #### [facility] Lymphocytes/100 WBC (Bld) 19 % Normal 10-50 [facility] Comment on above: Order Comment: Speci men Type: Unknown Relevant Clinical Information: See Reason(s) for Study Ordering Facility: [facility] Address: [address] [place] [address] Performed By: #### C BC #### [facility] MCH (RBC) [Entitic mass] 28.0 pg Normal 27.0-31.2 [facility] Comment on above: Order Comment: Speci men Type: Unknown Relevant Clinical Information: See Reason(s) for Study Ordering Facility: [facility] Address: [address] [place] [address] Performed By: #### C BC #### [facility] MCHC (RBC) [Mass/Vol] 33.1 g/dL Normal 31.8-35.4 [facility] Comment on above: Order Comment: Speci men Type: Unknown Relevant Clinical Information: See Reason(s) for Study Ordering Facility: [facility] Address: [address] [place] [address] Performed By: #### C BC #### [facility] MCV (RBC) [Entitic vol] 85 fL Normal 81-97 [facility] Comment on above: Order Comment: Speci men Type: Unknown Relevant Clinical Information: See Reason(s) for Study Ordering Facility: [facility] Address: [address] [place] [address] Performed By: #### C BC #### [facility] Monocytes (Bld) [#/Vol] 0.3 10*3/uL Normal 0.0-0.9 [facility] Comment on above: Order Comment: Speci men Type: Unknown Relevant Clinical Information: See Reason(s) for Study Ordering Facility: [facility] Address: [address] [place] [address] Performed By: #### C BC #### [facility] Monocytes/100 WBC (Bld) 5 % Normal 0-12 [facility] Comment on above: Order Comment: Speci men Type: Unknown Relevant Clinical Information: See Reason(s) for Study Ordering Facility: [facility] [facility] Address: [address] [place] [address] Performed By: #### C BC #### [facility] Neutrophils Absolute Auto 5.4 10*3/uL Normal 2.0-6.9 [facility] Comment on above: Order Comment: Speci men Type: Unknown Relevant Clinical Information: See Reason(s) for Study Ordering Facility: [facility] Address: [address] [place] [address] Performed By: #### C BC #### [facility] Neutrophils/100 WBC (Bld) 75 % Normal 37-80 [facility] Comment on above: Order Comment: Speci men Type: Unknown Relevant Clinical Information: See Reason(s) for Study Ordering Facility: [facility] Address: [address] [place] [address] Performed By: #### C BC #### [facility] Platelet mean volume (Bld) [Entitic vol] 9.4 fL Normal 7.0-11.0 [facility] Comment on above: Order Comment: Speci men Type: Unknown Relevant Clinical Information: See Reason(s) for Study Ordering Facility: [facility] Address: [address] [place] [address] Performed By: #### C BC #### [facility] Platelets (Bld) [#/Vol] 235 10*3/uL Normal 150-440 [facility] Comment on above: Order Comment: Speci men Type: Unknown Relevant Clinical Information: See Reason(s) for Study Ordering Facility: [facility] Address: [address] [place] [address] Performed By: #### C BC #### [facility] RBC (Bld) [#/Vol] 4.64 10*6/uL Normal 4.04-6.13 [facility] Comment on above: Order Comment: Speci men Type: Unknown Relevant Clinical Information: See Reason(s) for Study Ordering Facility: [facility] Address: [address] [place] [address] Performed By: #### C BC #### [facility] WBC (Bld) [#/Vol] 7.2 10*3/uL Normal 4.6-10.2 [facility] Comment on above: Order Comment: Speci men Type: Unknown Relevant Clinical Information: See Reason(s) for Study Ordering Facility: [facility] Address: [address] [place] [address] Performed By: #### C BC #### [facility] Comprehensive Metabolic Pane taryn 05-09-2020 Albumin [Mass/Vol] 4.3 g/dL Normal 3.4-5.0 Veena jeong [facility] Comment on above: Order Comment: Speci men Type: Unknown Relevant Clinical Information: See Reason(s) for Study Ordering Facility: [facility] Address: [address] [place] [address] Performed By: #### H H #### [facility] CLIA [id number] [address] [place], [place] [id number] ALP [Catalytic activity/Vol] 139 U/L High 45-117 [facility] Comment on above: Order Comment: Speci men Type: Unknown Relevant Clinical Information: See Reason(s) for Study Ordering Facility: [facility] Address: [address] [place] [address] Performed By: #### H H #### [facility] CLIA [id number] [address] [place] [address] ALT [Catalytic activity/Vol] 78 U/L High 13-61 [facility] Comment on above: Order Comment: Speci men Type: Unknown Relevant Clinical Information: See Reason(s) for Study Ordering Facility: [facility] Address: [address] [place] [address] Performed By: #### H H #### [facility] CLIA [id number] [address] [place] [address] AST [Catalytic activity/Vol] 110 U/L High 15-37 [facility] Comment on above: Order Comment: Speci men Type: Unknown Relevant Clinical Information: See Reason(s) for Study Ordering Facility: [facility] Address: [address] [place] [address] Performed By: #### H H #### [facility] CLIA [id number] [address] [place] [address] Bilirubin [Mass/Vol] 0.5 mg/dL Normal 0.2-1.0 [facility] Comment on above: Order Comment: Speci men Type: Unknown Relevant Clinical Information: See Reason(s) for Study Ordering Facility: [facility] Address: [address] [place] [address] Result Comment: Use of this assay is not recommended for patients undergoing treatment with eltrombopag due to the potential for falsely elevated results. Performed By: #### H H #### [facility] CLIA [id number] [address] [place] [address] Calcium [Mass/Vol] 9.4 mg/dL Normal 8.5-10.1 [facility] Comment on above: Order Comment: Speci men Type: Unknown Relevant Clinical Information: See Reason(s) for Study Ordering Facility: [facility] Address: [address] [place] [address] Performed By: #### H H #### [facility] CLIA [id number] [address] [place] [address] Chloride [Moles/Vol] 100 mmol/L Normal 100-108 [facility] Comment on above: Order Comment: Speci men Type: Unknown Relevant Clinical Information: See Reason(s) for Study Ordering Facility: [facility] Address: [address] [place] [address] Performed By: #### H H #### [facility] CLIA [id number] [address] [place] [address] CO2 [Moles/Vol] 25 mmol/L Normal 21-32 [facility] Comment on above: Order Comment: Speci men Type: Unknown Relevant Clinical Information: See Reason(s) for Study Ordering Facility: [facility] Address: [address] [place] [address] Performed By: #### H H #### [facility] CLIA [id number] [address] [place], [place] [address] Creatinine [Mass/Vol] 0.885 mg/dL Normal 0.55-1.02 [facility] Comment on above: Order Comment: Speci men Type: Unknown Relevant Clinical Information: See Reason(s) for Study Ordering Facility: [facility] Address: [address] [place] [address] Performed By: #### H H #### [facility] CLIA [id number] [address] [place] [address] GFR/1.73 sq M.predicted MDRD (S/P/Bld) [Vol rate/Area] 77 mL/min/{1.73_m2} Normal [facility] Comment on above: Order Comment: Speci men Type: Unknown Relevant Clinical Information: See Reason(s) for Study Ordering Facility: [facility] Address: [address] [place] [address] Result Comment: K/DO QI Guideline: Stage 1 >/=90 mL/min/1.73m2 - Not Consistent with CKD Stage 2 60-89 mL/min/1.73m2 - Consistent with Mild CKD Stage 3 30-59 mL/min/1.73m2 - Consistent with Moderate CKD Stage 4 15-29 mL/min/1.73m2 - Consistent with Severe CKD Stage 5 <15 mL/min/1.73m2 - Consistent with Kidney Failure Estimated Glomerular Filtration Rate (eGFR) is a calculated value utilizing the MDRD equation and provides an estimate of renal function. The equation assumes a steady state and should not be used for patients that meet any of the following criteria: - Are younger than 18 or older than 70 - Have rapidly fluctuating kidney function - Are - Have serious comorbid conditions - Have extremes of body size - Have extremes of muscle mass - Have extremes of nutritional status - Are non- or non- - Have normal kidney function Performed By: #### H H #### [facility] CLIA [id number] [address] [place] [address] Glucose [Mass/Vol] 284 mg/dL High 74-106 Ve[facility] Comment on above: Order Comment: Speci men Type: Unknown Relevant Clinical Information: See Reason(s) for Study Ordering Facility: [facility] Address: [address] [place] [address] Performed By: #### H H #### [facility] CLIA [id number] [address] [place] [address] Potassium [Moles/Vol] 3.8 mmol/L Normal 3.5-5.1 [facility] Comment on above: Order Comment: Speci men Type: Unknown Relevant Clinical Information: See Reason(s) for Study Ordering Facility: [facility] Address: [address] [place] [address] Performed By: #### H H #### [facility] CLIA [id number] [address] [place] [address] Protein [Mass/Vol] 8.5 g/dL High 6.4-8.2 [facility] Comment on above: Order Comment: Speci men Type: Unknown Relevant Clinical Information: See Reason(s) for Study Ordering Facility: [facility] Address: [address] [place] [address] Performed By: #### H H #### [facility] CLIA [id number] [address] [place] [address] Sodium [Moles/Vol] 132 mmol/L Low 136-145 [facility] Comment on above: Order Comment: Speci men Type: Unknown Relevant Clinical Information: See Reason(s) for Study Ordering Facility: [facility] Address: [address] [place] [address] Performed By: #### H H #### [facility] CLIA [id number] [address] [place] [address] Urea nitrogen [Mass/Vol] 11 mg/dL Normal 7-18 [facility] Comment on above: Order Comment: Speci men Type: Unknown Relevant Clinical Information: See Reason(s) for Study Ordering Facility: [facility] Address: [address] [place] [address] Performed By: #### H H #### [facility] CLIA [id number] [address] [place], [place] [address] Ferritinon 05-09-2020 Ferritin [Mass/Vol] 232 ng/mL Normal 8-252 [facility] Comment on above: Order Comment: Speci men Type: Unknown Relevant Clinical Information: See Reason(s) for Study Ordering Facility: [facility] Address: [address] [place] [address] Performed By: #### H H #### [facility] CLIA [id number] [address] [place], [place] [address] Iron TIBC Saturationon 05-09 Iron [Mass/Vol] 64 ug/dL Normal 50-170 [facility] Comment on above: Order Comment: Speci men Type: Unknown Relevant Clinical Information: See Reason(s) for Study Ordering Facility: [facility] Address: [address] [place] [address] Performed By: #### H H #### [facility] CLIA [id number] [address] [place] [address] Iron Saturation 18 % Normal 15-50 [facility] Comment on above: Order Comment: Speci men Type: Unknown Relevant Clinical Information: See Reason(s) for Study Ordering Facility: [facility] Address: [address] [place] [address] Performed By: #### H H #### [facility] CLIA [id number] [address] [place] [address] Total Iron Binding Capacity 352 ug/dL Normal 250-450 [facility] Comment on above: Order Comment: Speci men Type: Unknown Relevant Clinical Information: See Reason(s) for Study Ordering Facility: [facility] Address: [address] [place] [address] Performed By: #### H H #### [facility] CLIA [id number] [address] [place] [address] HIP RT 2 - 3 VIEWSon 020 HIP RT 2 - 3 VIEWS PROCEDURE: HIP RT: COMPLETE 2 - 3 VIEWS CLINICAL: FALL, PAIN Special Instructions: = N TECHNIQUE: 2 VIEWS OF THE RIGHT HIP with AP PELVIS. IMAGING PERFORMED ON DATE/TIME: 11-09-2019, 12:49 PM COMPARISON: There are no recent comparison exams available at the time of dictation. FINDINGS: The examination fails to demonstrate evidence of an acute fracture. The femoral heads appear to articulate normally with the acetabulum. A single frontal view of the pelvis demonstrates no evidence of pelvic fracture or diastasis. IMPRESSION: No radiographic evidence of an acute fracture. RECOMMENDATION: If a radiographically occult fracture is clinically suspected, a MRI or CT evaluation could be obtained. ____ Electronically signed by: Jj Navarro M.D. Date/time: 11-09-2019, 01:18 PM Final Report Normal KNEE LT 3 VIEWSon 11-09-2019 KNEE LT 3 VIEWS PROCEDURE: KNEE LT 3 VIEWS CLINICAL: FALL, ABRASION Special Instructions: = N TECHNIQUE: LEFT KNEE IMAGING PERFORMED ON DATE/TIME: 11-09-2019, 12:47 PM COMPARISON: There are no recent comparison exams available at the time of dictation. FINDINGS: The examination fails to demonstrate evidence of an acute fracture or sizable suprapatellar effusion. There is minimal osteophytosis in the patellofemoral compartment. The joint spaces appear to be well maintained, and no intra-articular loose bodies are identified. IMPRESSION: No radiographic evidence of an acute fracture. ____ Electronically signed by: Stephanie Henderson M.D. Date/time: 11-09-2019, 01:02 PM Final Report Normal Encounters Encounter Date Encounter Type Care Provider Facility Start: 07-15-2022 End: 07-15-2022 ambulatory REJI STRICKLAND . Facility: Payers Date Payer Category Payer Unknown [id number] 1961 Medicaid [id number] 1961 Medicare [id number] Summary Purpose Family History No Family History Records FoundNo Family History Records FoundNo Family History Records Found Advance Directives No Advanced Directives Records FoundNo Advanced Directives Records FoundNo Advanced Directives Records Found Additional Source Comments INFORMATION SOURCE (unrecogn ized section and content) DATE CREATED AUTHOR 11/11/2019 [facility] dical [place] DATE CREATED AUTHOR AUTHOR'S ORGANIZ ATION 04/25/2021 [facility] dical [facility] DATE CREATED AUTHOR AUTHOR'S ORGANIZ ATION 07/17/2022 [facility] FOR RECORDS PERTAINING TO PATIENTS WHO ARE OR HAVE BEEN ENROLLED IN A CHEMICAL DEPENDENCY/SUBSTANCEABUSE PROGRAM, SOME INFORMATION MAY BE OMITTED. This clinical summary was aggregated from multiple sources. Caution should be exercised in using it in the provision of clinical care. This summary normalizes information from multiple sources, and as a consequence, information in this document may materially change the coding, format and clinical context of patient data. In addition, data may be omitted in some cases. CLINICAL DECISIONS SHOULD BE BASED ON THE PRIMARY CLINICAL RECORDS. [facility], [facility]. provides no warranty or guarantee of the accuracy or completeness of information in this document.
[2023-04-02 11:21] LABS: SARS-CoV-2 NAA NOT DETECTED (NOT DETECTE)
== END 2023-03-31 15:29 | disposition home or self-care (01) ==
LOC: LAB 15:28
PROVIDERS: PCP Nurse Practitioner; Visit Provider Nurse Practitioner
DX: Z20.822 Contact with and (suspected) exposure to COVID-19 (principal)
CPT/HCPCS: 87635; 87811